=== PATIENT | female | born 1990 | race Caucasian/White ===

== ENCOUNTER 2016-11-30 22:31 | Inpatient (IN) | payer MEDICAID ==
[~2016-11-30] VITALS: Ht 165.1 cm; Wt 53.5 kg
[2016-11-30 23:12] LABS: BASOPHILS 2.2 % (0.0-2.0); EOSINOPHILS 0.9 % (0-7); HEMATOCRIT 45.4 % (36.0-48.0); HEMOGLOBIN 15.8 g/dL (12-16); LYMPHOCYTES 33.3 % (15-50); MCH 31.4 pg (26.0-34.0); MCHC 34.8 g/dL (31.0-37.0); MCV 90.3 fL (80.0-100.0); MEAN PLATELET VOLUME 9.6 fL (7.4-10.4); MONOCYTES 12.7 % (2-11); NEUTROPHILS 50.9 % (40-80); PLATELET COUNT 245 10x3/uL (130-400); RBC 5.03 10x6/uL (4.00-5.40); RDW 12.5 % (11.5-14.5); WBC 4.5 10x3/uL (4.8-10.8)
[2016-11-30 23:23] LABS: HCG SERUM NEGATIVE (NEGATIVE)
[2016-11-30 23:24] LABS: SALICYLATES 2.8 mg/dL (2.8-20.0)
[2016-11-30 23:25] LABS: LITHIUM 0.02 mmol/L (0.60-1.20)
[2016-11-30 23:31] LABS: ALBUMIN 3.6 g/dL (3.4-5.0); ALKALINE PHOSPHATASE 93 U/L (46-116); ALT (SGPT) 42 U/L (10-68); CALC OSMOLALITY 272 mosm/kg (275-300); CALCIUM 9.5 mg/dL (8.5-10.1); CARBON DIOXIDE 28.9 mmol/L (21.0-32.0); CHLORIDE - SERUM 97 mmol/L (98-107); CREATININE - SERUM 0.7 mg/dL (0.6-1.3); GLUCOSE 94 mg/dL (74-106); POTASSIUM - SERUM 3.5 mmol/L (3.5-5.1); PROTEIN - SERUM 8.6 g/dL (6.4-8.2); SODIUM 136 mmol/L (136-145); UREA NITROGEN 16 mg/dL (7-18); eGFR NON AFRICAN AMERICAN > 90 mL/min (90-120)
[2016-12-01] VITALS (9 sets, daily range): BP systolic 104–126; BP diastolic 62–82; Ht 165.1 cm; Wt 53.5 kg
[2016-12-01 00:16] LABS: APPEARANCE CLEAR (CLEAR); BILIRUBIN NEGATIVE (NEGATIVE); COLOR YELLOW (YELLOW); GLUCOSE NEGATIVE (NEGATIVE); KETONE NEGATIVE (NEGATIVE); LEUKOCYTE ESTERASE NEGATIVE (NEGATIVE); NITRITE NEGATIVE (NEGATIVE); PROTEIN NEGATIVE (NEGATIVE); SPECIFIC GRAVITY 1.015 (1.005-1.020); UROBILINOGEN NORMAL (NORMAL)
[2016-12-01 00:23] LABS: UDS - AMPHET POSITIVE QUAL (NEGATIVE); UDS - BARB NEGATIVE QUAL (NEGATIVE); UDS - BENZO NEGATIVE QUAL (NEGATIVE); UDS - COCAINE NEGATIVE QUAL (NEGATIVE); UDS - METH NEGATIVE QUAL (NEGATIVE); UDS - OPIATE NEGATIVE QUAL (NEGATIVE); UDS - PCP NEGATIVE QUAL (NEGATIVE); UDS - THC POSITIVE QUAL (NEGATIVE)
--- NOTE | 2016-12-01 03:25 | NUR ---
PT REC'D TO ROOM 2313 FROM ER VIA WHEELCHAIR, PT TRANSFERRED SELF TO BED, GAIT STEADY, AWAKE, ALERT, AND ORIENTED X 4, RIGHT A/C PIV SALINE LOCKED, LEFT WRIST DRSG CDI, ER REPORTS LACERATION, PT ON ROOM AIR, PT COOPERATIVE AT THIS TIME, ASSISTED PT TO CHANGE INTO PAPER SCRUBS, BELONGINGS BAG REMOVED FROM ROOM, CM-SR, BP STABLE, CALL LIGHT PLACED WITHIN REACH, SR UP X 2, BED IN LOW POSITION.
[2016-12-01] MEDS ORDERED: LITHIUM CARBON300 MG PO (03:32)
[2016-12-01] MEDS ORDERED: SEROQUEL XR300 MG PO (03:33)
[2016-12-01] MEDS ORDERED: VALIUM10 MG PO (03:35)
[2016-12-01] MEDS ORDERED: HYDROCODONE-APA1 TAB PO (03:36)
--- NOTE | 2016-12-01 04:15 | NUR ---
LR STARTED @ 100CC/HR TO RIGHT A/C, PT COMPLAINS OF BEING COLD, THERMOSTAT ADJUSTED IN ROOM AND WARM BLANKET PROVIDED.
--- NOTE | 2016-12-01 04:45 | NUR ---
PT UP OUT OF BED, STATES " I NEED TO USE THE BATHROOM", INSTRUCTED PT TO REMAIN IN BED, BSC BROUGHT TO BS, PT REFUSES TO USE BSC, INSTRUCTED PT THERE WERE NO BATHROOMS IN ICU THE BSC WAS WHAT WAS OFFERED, PT CONTINUES TO REFUSE, .
--- NOTE | 2016-12-01 05:10 | NUR ---
PT REQUESTING DOOR TO ROOM CLOSED, "SO I CAN TALK WITHOUT YA'LL HEARING ME", DOOR CLOSED BUT CURTAIN REMAINS OPEN TO SEE PT.
--- NOTE | 2016-12-01 06:45 | NUR ---
PT REQUESTING PHONE TO CALL MOTHER REFUSES TO PROVIDE EMERGENCY CONTACT, PHONE PROVIDED, VSS, VISIBLE TO NURSES STATION.
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
--- NOTE | 2016-12-01 08:30 | NUR ---
Called [facility] and ensured they received fax. Nurse had in hand.
--- NOTE | 2016-12-01 09:10 | NUR ---
Pts boyfriend in room for 0900 visitation. Patient requested that he take her belongings. Belongings set outside patients room for b/f to take with. Currently watching patient and visitor.
--- NOTE | 2016-12-01 09:40 | NUR ---
Patient had attempted to leave ICU. PT existed through waiting room doors and was followed by myself and . We were then met up by CHARLY Anderson Noah with security and Jaciel with engineering. We managed to get patient to go into Kirsten, nurse managers office on med surg office. Manasa, linda, pt and pts b/f sat and talked. was notified and placed patient on 72 hour hold until evaluation by psych could occur. Patient was notified of this and then redirected back to ICU. linda Goel, Rod and Bairon Hermosillo escorted patient back to room 2313. Once back in ICU spoke to patient for appx 5 minutes. He continues to stand by his decision to place her on a hold. Manasa Holliday called [facility] and requested that come to ICU first to evaluate patient. Pt was informed of this. I am currently sitting outside patients room to help monitor pt.
--- NOTE | 2016-12-01 09:51 | NUR ---
Patients b/f called up here told Juju, community recreation programmer that he will be calling a research methodologist. [id number]-Spoke to b/f myself. He is threating to come back to hospital with law enforcement. He then requested to speak with CHARLY Goel. [phone]-CHARLY Anderson, RN currently on phone with b/f speaking with him.
--- NOTE | 2016-12-01 10:16 | NUR ---
All monitors and cord have been removed from patient room.
--- NOTE | 2016-12-01 10:56 | NUR ---
Patient continues to training development specialist door way and stare. Pt is tearful and agitated.
--- NOTE | 2016-12-01 11:40 | NUR ---
through to see patient. He spoke with patient for a while. Reccomendation to inpatient psych PAKO. He believes she is still suicidal and currently psychotic. Manasa Holliday RN ADN called [facility] here in . Phone handed over to me, I spoke with EMELINA Bryant at [facility] and gave a general update and events that have led up to patient being on 72 hr hold and needing inpatient psych placement.
--- NOTE | 2016-12-01 12:30 | NUR ---
Currently in talks with [facility]. All requested paperwork sent with transmission conformation at 1158 today. Pts mood remains labile.
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
--- NOTE | 2016-12-01 13:25 | NUR ---
Received call from Manny Cottrell. Pt has been accepted to room 413 bed 1. Pt will be admitted voluntarily at this time and then they will place their own hold if needed as our 72 hour hold documentation is not adeqaute for them. I am to call [phone] to give report. Informed Julian Holliday and Shraddha with CM of this.
--- NOTE | 2016-12-01 13:36 | NUR ---
Called report to EMELINA Zabala at [facility].
--- NOTE | 2016-12-01 14:06 | NUR ---
Spoke to Yandel with [facility], transfer requested, appx 20-30 mins
--- NOTE | 2016-12-01 14:22 | NUR ---
Attempted to obtain vitals. Pt denied.
--- NOTE | 2016-12-01 14:52 | NUR ---
Patient taken via EMS team via stretcher.
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
== END 2016-12-01 15:02 | disposition short-term general hospital (02) | DRG 918 ==
LOC: D.ER 22:31 → D.ICU 12-01 02:18
PROVIDERS: Emergency Medicine; ADMIT Family Medicine Adult Medicine
DX: T43.592A Poisoning by other antipsychotics and neuroleptics, intentional self-harm, initial encounter (principal); F31.30 Bipolar disorder, current episode depressed, mild or moderate severity, unspecified; F15.10 Other stimulant abuse, uncomplicated; F12.10 Cannabis abuse, uncomplicated; Z72.0 Tobacco use